=== PATIENT | male | born 1960 | race African-American/Black ===

== ENCOUNTER 2021-11-10 22:06 | Emergency (ER) | payer OTHER ==
[~2021-11-10] VITALS: Ht 175.3 cm; Wt 73.0 kg
[2021-11-10 22:35] LABS: IMMATURE GRANULOCYTES 0.4 % (0.0-5.0); MEAN CELL VOLUME 87.8 fL CALC (80.0-100.0); MEAN CORPUSCULAR HGB 26.9 pG CALC (26.0-32.0); MEAN CORPUSCULAR HGB CONC 30.7 g/dL CAL (32.0-36.0); NEUT# 5.02 thou/uL (1.82-7.42); RED BLOOD COUNT 5.39 mill/uL (4.70-6.10); RED CELL DISTRI WIDTH 13.1 % (11.5-15.5)
[2021-11-10 22:39] LABS: HEMATOCRIT 47.3 % (39.0-50.0); HEMOGLOBIN 14.5 g/dl (14.0-18.0)
[2021-11-10 22:55] LABS: ACT PARTIAL THROMBO TIME 22.8 SECONDS (20.0-32.5)
[2021-11-10 22:57] LABS: PROTHROMBIN TIME 10.8 SECONDS (9.0-12.5)
[2021-11-10 23:01] LABS: ALKALINE PHOSPHATASE 82 u/l (38-126); ANION GAP 20 (6-22 (CALC)); BUN 16 mg/dL (9-20); BUN/CREATININE RATIO 14 (12-20 (CALC)); CARBON DIOXIDE 21 mmol/l (22-30); CHLORIDE 105 mmol/l (95-108); CREATININE 1.1 mg/dL (0.7-1.3); GFR > 60 ML/MIN (>=60 (CALC)); GFR FOR AFR.AMER. > 60 ML/MIN (>=60 (CALC)); LIPASE 97 u/l (23-300); POTASSIUM 4.2 mmol/l (3.5-5.1); SGOT/AST 32 u/l (17-59); SODIUM 141 mmol/l (137-146)
[2021-11-10 23:08] LABS: ALBUMIN 4.2 g/dL (3.2-5.0); BILIRUBIN, TOTAL 0.4 mg/dL (0.0-1.4); TOTAL PROTEIN 7.9 g/dL (6.3-8.2)
[2021-11-10] MEDS ORDERED: KEPPRA500 M2 PO (23:43)
[2021-11-11 00:05] VITALS: BP 122/80
== END 2021-11-11 00:15 | disposition designated cancer center or children's hospital (05) | DRG 101 ==
LOC: ED 22:06
PROC: 0HQ1XZZ Repair Face Skin, External Approach (ICD-10-PCS; principal; 2021-11-10)
DX: G40.909 Epilepsy, unspecified, not intractable, without status epilepticus (principal); S01.111A Laceration without foreign body of right eyelid and periocular area, initial encounter; F79 Unspecified intellectual disabilities; W06.XXXA Fall from bed, initial encounter; Y92.143 Cell of prison as the place of occurrence of the external cause; Z20.822 Contact with and (suspected) exposure to COVID-19
CPT/HCPCS: J1953

== ENCOUNTER 2023-02-21 19:52 | Emergency (ER) | payer OTHER ==
[~2023-02-21] VITALS: Ht 175.3 cm; Wt 77.0 kg
[~2023-02-21 19:52] MED LIST: KEPPRA500 M2 PO
[2023-02-21 20:23] LABS: BASO% 0.1 % (0-3); HEMATOCRIT 44.9 % (39.0-50.0); IMMATURE GRANULOCYTES 0.3 % (0.0-5.0); LYMPH% 8.7 % (15-41); MEAN CELL VOLUME 84.7 fL CALC (80.0-100.0); MEAN CORPUSCULAR HGB 26.4 pG CALC (26.0-32.0); MEAN CORPUSCULAR HGB CONC 31.2 g/dL CAL (32.0-36.0); MONO% 5.3 % (2-13); NEUT# 7.48 thou/uL (1.82-7.42); NEUT% 85.6 % (42-76); RED BLOOD COUNT 5.3 mill/uL (4.70-6.10)
[2023-02-21 20:24] LABS: URINE BILIRUBIN - DIPSTICK NEGATIVE (NEGATIVE); URINE BLOOD DIPSTICK SMALL (NEGATIVE); URINE COLOR YELLOW; URINE GLUCOSE - DIPSTICK 500 mg/dL (NEGATIVE); URINE KETONE NEGATIVE (NEGATIVE); URINE LEUK ESTERASE NEGATIVE (NEGATIVE); URINE PH 5.5 (4.5-8.0); URINE PROTEIN - DIPSTICK 100 mg/dL (NEG-TRACE); URINE SPECIFIC GRAVITY >=1.030; URINE UROBILINOGEN - DIPSTICK 0.2 E.U./dL (0.2)
[2023-02-21 20:27] LABS: URINE NITRITE - DIPSTICK NEGATIVE (Negative)
[2023-02-21] MEDS ORDERED: PROZAC20 MG PO (20:29)
[2023-02-21] MEDS ORDERED: KEPPRA750 M2 PO ×2 (20:29→21:30)
[2023-02-21] MEDS ORDERED: ATORVASTATIN CA10 MG PO (20:29)
[2023-02-21 20:33] LABS: URINE AMORPH SEDIMENT MANY hpf (NONE-FER); URINE WBC 0-2 WBC/hpf (0-5)
[2023-02-21 21:15] LABS: ALBUMIN 4.3 g/dL (3.2-5.0); ALKALINE PHOSPHATASE 64 u/l (38-126); ANION GAP 11 (6-22 (CALC)); BILIRUBIN, TOTAL 0.1 mg/dL (0.2-1.3); BUN 17 mg/dL (8-23); BUN/CREATININE RATIO 16 (12-20 (CALC)); CARBON DIOXIDE 27 mmol/l (22-30); CHLORIDE 107 mmol/l (95-108); CREATININE 1.1 mg/dL (0.7-1.3); ETHYL ALCOHOL 0 mg/dl (0-30); GFR FOR AFR.AMER. > 60 ML/MIN (>=60 (CALC)); GFR OTHER RACES > 60 ML/MIN (>=60 (CALC)); MAGNESIUM 2.4 mg/dL (1.6-2.3); POTASSIUM 3.9 mmol/l (3.5-5.1); SGOT/AST 31 u/l (19-48); SODIUM 141 mmol/l (137-146); TOTAL PROTEIN 7.3 g/dL (6.3-8.2)
[2023-02-21 21:52] VITALS: BP 110/74
== END 2023-02-21 22:13 | disposition designated cancer center or children's hospital (05) | DRG 101 ==
LOC: ED 19:52
PROVIDERS: Family Medicine
DX: G40.409 Other generalized epilepsy and epileptic syndromes, not intractable, without status epilepticus (principal); S00.512A Abrasion of oral cavity, initial encounter; X58.XXXA Exposure to other specified factors, initial encounter
CPT/HCPCS: J1953

== ENCOUNTER 2023-04-15 15:56 | Emergency (ER) | payer OTHER ==
[~2023-04-15] VITALS: Ht 175.3 cm; Wt 81.6 kg
[~2023-04-15 15:56] MED LIST changes: +ATORVASTATIN CA10 MG PO; +KEPPRA750 M2 PO; +PROZAC20 MG PO
[2023-04-15 16:22] LABS: BASO% 0.3 % (0-3); HEMATOCRIT 43.5 % (39.0-50.0); HEMOGLOBIN 13.6 g/dl (14.0-18.0); IMMATURE GRANULOCYTES 0.3 % (0.0-5.0); LYMPH% 38.3 % (15-41); MEAN CELL VOLUME 84.8 fL CALC (80.0-100.0); MEAN CORPUSCULAR HGB 26.5 pG CALC (26.0-32.0); MEAN CORPUSCULAR HGB CONC 31.3 g/dL CAL (32.0-36.0); MONO% 13.1 % (2-13); NEUT# 2.9 thou/uL (1.82-7.42); RED BLOOD COUNT 5.13 mill/uL (4.70-6.10); RED CELL DISTRI WIDTH 13.5 % (11.5-15.5)
[2023-04-15 16:33] LABS: ALBUMIN 4.3 g/dL (3.2-5.0); ALKALINE PHOSPHATASE 67 u/l (38-126); BUN 13 mg/dL (8-23); BUN/CREATININE RATIO 12 (12-20 (CALC)); CHLORIDE 106 mmol/l (95-108); CREATININE 1.1 mg/dL (0.7-1.3); GFR FOR AFR.AMER. > 60 ML/MIN (>=60 (CALC)); GFR OTHER RACES > 60 ML/MIN (>=60 (CALC)); POTASSIUM 3.8 mmol/l (3.5-5.1); SGOT/AST 37 u/l (19-48); SODIUM 139 mmol/l (137-146); TOTAL PROTEIN 7.6 g/dL (6.3-8.2)
[2023-04-15] MEDS ORDERED: LEVETIRACETAM500 MG PO (16:37)
[2023-04-15 16:38] LABS: ANION GAP 18 (6-22 (CALC)); BILIRUBIN, TOTAL 0.5 mg/dL (0.2-1.3); CARBON DIOXIDE 19 mmol/l (22-30)
[2023-04-15 17:28] VITALS: BP 105/67
[2023-04-15 17:30] VITALS: BP 98/63
[2023-04-15 18:00] VITALS: BP 94/61
[2023-04-15 18:30] VITALS: BP 102/66
[2023-04-15 18:44] LABS: URINE BILIRUBIN - DIPSTICK NEGATIVE (NEGATIVE); URINE BLOOD DIPSTICK NEGATIVE (NEGATIVE); URINE COLOR YELLOW; URINE GLUCOSE - DIPSTICK NEGATIVE (NEGATIVE); URINE KETONE NEGATIVE (NEGATIVE); URINE LEUK ESTERASE NEGATIVE (NEGATIVE); URINE NITRITE - DIPSTICK NEGATIVE (Negative); URINE PROTEIN - DIPSTICK 30 mg/dL (NEG-TRACE); URINE SPECIFIC GRAVITY 1.025; URINE UROBILINOGEN - DIPSTICK 0.2 E.U./dL (0.2)
[2023-04-15 18:45] LABS: URINE RBC 0-2 RBC/hpf (0-5)
[2023-04-15 18:55] VITALS: BP 102/66
== END 2023-04-15 19:00 | disposition designated cancer center or children's hospital (05) | DRG 101 ==
LOC: ED 15:56
PROVIDERS: Nurse Practitioner
DX: G40.409 Other generalized epilepsy and epileptic syndromes, not intractable, without status epilepticus (principal); F79 Unspecified intellectual disabilities
CPT/HCPCS: J1953

== ENCOUNTER 2024-04-24 21:31 | Emergency (ER) | payer OTHER ==
[~2024-04-24] VITALS: Ht 175.3 cm; Wt 68.0 kg
[~2024-04-24 21:31] MED LIST changes: +LEVETIRACETAM500 MG PO
[2024-04-24] MEDS ORDERED: SODIUM CHLORIDE 0.9% 1,000 ML IV ONE (21:40)
[2024-04-24 22:27] LABS: BASO% 0.1 % (0-3); HEMATOCRIT 43.9 % (39.0-50.0); HEMOGLOBIN 13.9 g/dl (14.0-18.0); IMMATURE GRANULOCYTES 1.4 % (0.0-5.0); LYMPH% 7.3 % (15-41); MEAN CELL VOLUME 85.7 fL CALC (80.0-100.0); MEAN CORPUSCULAR HGB 27.1 pG CALC (26.0-32.0); MEAN CORPUSCULAR HGB CONC 31.7 g/dL CAL (32.0-36.0); MONO% 10.2 % (2-13); NEUT# 6.52 thou/uL (1.82-7.42); RED BLOOD COUNT 5.12 mill/uL (4.70-6.10); RED CELL DISTRI WIDTH 12.4 % (11.5-15.5)
[2024-04-24 22:52] LABS: ALBUMIN 4.3 g/dL (3.2-5.0); BILIRUBIN, TOTAL 0.3 mg/dL (0.2-1.3); CREATININE 1.4 mg/dL (0.7-1.3); POTASSIUM 4.2 mmol/l (3.5-5.1); TOTAL PROTEIN 7.6 g/dL (6.3-8.2)
[2024-04-24] MEDS ORDERED: PHENYTOIN 25 MG/ML SUSP PO ONE (23:55)
[2024-04-25] MEDS ORDERED: PHENYTOIN SODIUM 250 MG/5 ML VIAL IV ONE (00:10)
[2024-04-25] MEDS ORDERED: SODIUM CHLORIDE 0.9% 250 ML IV ONE (00:13)
[2024-04-25] MEDS ORDERED: MORPHINE SULFATE 4 MG/ML VIAL IV ONE (00:15)
[2024-04-25 04:00] VITALS: BP 67/54
[2024-04-25 04:03] LABS: URINE BILIRUBIN - DIPSTICK Negative (NEGATIVE); URINE BLOOD DIPSTICK Moderate (NEGATIVE); URINE GLUCOSE - DIPSTICK Negative (NEGATIVE); URINE KETONE Negative (NEGATIVE); URINE LEUK ESTERASE Negative (NEGATIVE); URINE NITRITE - DIPSTICK Negative (Negative); URINE PROTEIN - DIPSTICK 100 mg/dL (NEG-TRACE); URINE UROBILINOGEN - DIPSTICK 0.2 E.U./dL (0.2)
[2024-04-25 04:04] LABS: URINE COLOR Yellow
[2024-04-25 04:10] LABS: URINE SQUAMOUS EPITHELIAL CELL FEW EPI/hpf (0-FEW); URINE WBC 0-2 WBC/hpf (0-5)
== END 2024-04-25 04:00 | disposition short-term general hospital (02) | DRG 65 ==
LOC: ED 21:31
PROVIDERS: Family Medicine
DX: I60.9 Nontraumatic subarachnoid hemorrhage, unspecified (principal); G81.94 Hemiplegia, unspecified affecting left nondominant side; R29.810 Facial weakness; R47.1 Dysarthria and anarthria; R29.714 NIHSS score 14; G40.409 Other generalized epilepsy and epileptic syndromes, not intractable, without status epilepticus; F20.9 Schizophrenia, unspecified; F79 Unspecified intellectual disabilities
CPT/HCPCS: Q9967

== ENCOUNTER 2024-09-06 17:40 | Emergency (ER) | payer OTHER ==
[2024-09-06] VITALS (51 sets, daily range): BP systolic 70–149; BP diastolic 45–98
[~2024-09-06] VITALS: Ht 172.7 cm; Wt 63.6 kg
[2024-09-06] MEDS ORDERED: SODIUM CHLORIDE 0.9% 1,000 ML IV ONE ×2 (17:55)
[2024-09-06] MEDS ORDERED: PROPOFOL 100 ML IV ONE (18:20)
[2024-09-06] MEDS ORDERED: KETAMINE HCL 50 MG/ML 10 ML VIAL IM ONE (18:20)
[2024-09-06] MEDS ORDERED: ROCURONIUM BROMIDE 10 MG/ML 5ML VIAL IV ONE (18:20)
[2024-09-06] MEDS ORDERED: PHENYLEPHRINE HCL 10 MG/ML VIAL IV ONE (18:25)
[2024-09-06] MEDS ORDERED: SODIUM CHLORIDE 0.9% 100 ML IV ONE ×3 (18:25→18:43)
[2024-09-06] MEDS ORDERED: NOREPINEPHRINE BITARTRATE 4 MG in DEXTROSE 5% 250 ML IV ONE (18:30)
[2024-09-06] MEDS ORDERED: SODIUM CHLORIDE 0.9% 100 ML BAG IV ONE (18:30)
[2024-09-06] MEDS ORDERED: SODIUM CHLORIDE 0.9% 250 ML IV PRN (18:30)
[2024-09-06] MEDS ORDERED: KETAMINE HCL 50 MG/ML 10 ML VIAL IV ONE (18:45)
--- NOTE | 2024-09-06 19:25 | NUR ---
RECEIVED PATIENT VIA HANDOFF FROM ED RN, PATIENT INTUBATED FIO2 60% PEEP 5 VIA ET 7.5 26 @ THE LIP - VITALS STABLE. PROPOFOL @ 5MCG/KG/MIN, LEVOPHED @ 10 MCG/MIN, 0.9%NS WIDE OPEN PER MD ORDER, 2ND LITER INFUSING VIA PRESSURE BAG . RECEIVED 3G KEPPRA IV, 2G COMPLETED DURING REPORT. PLACED BUCKLEY CATHETER, URINE OBTAINED AND SENT TO LAB FOR UA ORDERED.
[2024-09-06 19:26] LABS: BASO% 0.1 % (0-3); HEMOGLOBIN 13.9 g/dl (14.0-18.0); IMMATURE GRANULOCYTES 0.7 % (0.0-5.0); LYMPH% 7.2 % (15-41); MEAN CELL VOLUME 84.3 fL CALC (80.0-100.0); MEAN CORPUSCULAR HGB 27.3 pG CALC (26.0-32.0); MEAN CORPUSCULAR HGB CONC 32.3 g/dL CAL (32.0-36.0); MONO% 9.9 % (2-13); NEUT# 7.27 thou/uL (1.82-7.42); NEUT% 82.1 % (42-76); RED BLOOD COUNT 5.1 mill/uL (4.70-6.10)
[2024-09-06 19:38] LABS: ALBUMIN 4.4 g/dL (3.2-5.0); BILIRUBIN, TOTAL 0.3 mg/dL (0.2-1.3); CREATININE 1.2 mg/dL (0.7-1.3); POTASSIUM 3.2 mmol/l (3.5-5.1); TOTAL PROTEIN 7.4 g/dL (6.3-8.2)
--- NOTE | 2024-09-06 19:50 | NUR ---
PATIENT ESCORTED TO CT PER MD ORDER WITH RT AND RADIOLOGY. RETURNED AT 2009.
[2024-09-06 20:00] LABS: URINE BILIRUBIN - DIPSTICK Negative (NEGATIVE); URINE BLOOD DIPSTICK Small (NEGATIVE); URINE GLUCOSE - DIPSTICK Negative (NEGATIVE); URINE KETONE Negative (NEGATIVE); URINE LEUK ESTERASE Negative (NEGATIVE); URINE NITRITE - DIPSTICK Negative (Negative); URINE PROTEIN - DIPSTICK 100 mg/dL (NEG-TRACE); URINE SPECIFIC GRAVITY >=1.030; URINE UROBILINOGEN - DIPSTICK 0.2 E.U./dL (0.2)
[2024-09-06 20:01] LABS: URINE COLOR Yellow
[2024-09-06 20:12] LABS: URINE SPERM FEW hpf (NONE-RARE); URINE WBC 0-2 WBC/hpf (0-5)
--- NOTE | 2024-09-06 20:31 | NUR ---
LEVOPHED DRIP REDUCED TO 5MCG/KG/MIN BP HOLDING AT 130S/70-80S.
--- NOTE | 2024-09-06 21:00 | NUR ---
LEVO DRIP REDUCED TO 2 MCG, PRESSURES HOLDING AT 130S/80S
--- NOTE | 2024-09-06 21:19 | NUR ---
2114 LEVO DRIP STOPPED PRESSURES STABLE 130S/90S. MD NOTIFIED AND AWARE. SUCTIONED FOR AIRWAY CLEARANCE, PT BIT TONGUE DURING SEIZURE AND HAS OPEN AREA ON TONGUE.
--- NOTE | 2024-09-06 22:04 | NUR ---
REPORT CALLED TO [facility] [id number], TRACY RECEIVED REPORT. TRANSPORT ARRIVED AND GIVEN BEDSIDE REPORT.
--- NOTE | 2024-09-06 22:24 | NUR ---
EXITED WITH PROPOFOL AT 5 IN ROUTE TO [facility] VIA [facility] AT 2225.
== END 2024-09-06 22:00 | disposition short-term general hospital (02) | DRG 101 ==
LOC: ED 17:40
PROVIDERS: Nurse Practitioner
PROC: 0T9B70Z Drainage of Bladder with Drainage Device, Via Natural or Artificial Opening (ICD-10-PCS; principal; 2024-09-06)
PROC: 0BH17EZ Insertion of Endotracheal Airway into Trachea, Via Natural or Artificial Opening (ICD-10-PCS; 2024-09-06)
PROC: 5A1935Z Respiratory Ventilation, Less than 24 Consecutive Hours (ICD-10-PCS; 2024-09-06)
PROC: 02HV33Z Insertion of Infusion Device into Superior Vena Cava, Percutaneous Approach (ICD-10-PCS; 2024-09-06)
DX: G40.401 Other generalized epilepsy and epileptic syndromes, not intractable, with status epilepticus (principal); F79 Unspecified intellectual disabilities
CPT/HCPCS: J1953

== ENCOUNTER 2024-10-17 20:46 | Emergency (ER) | payer OTHER ==
[~2024-10-17] VITALS: Ht 172.7 cm; Wt 89.0 kg
[2024-10-17 21:28] LABS: BASO% 0.1 % (0-3); ESTIMATED GFR 56 ML/MIN (>=90 (CALC)); HEMATOCRIT 46.5 % (39.0-50.0); HEMOGLOBIN 14.4 g/dl (14.0-18.0); IMMATURE GRANULOCYTES 0.8 % (0.0-5.0); LYMPH% 10.1 % (15-41); MEAN CELL VOLUME 87.6 fL CALC (80.0-100.0); MEAN CORPUSCULAR HGB 27.1 pG CALC (26.0-32.0); MONO% 7.4 % (2-13); NEUT# 6.2 thou/uL (1.82-7.42); NEUT% 81.6 % (42-76); RED BLOOD COUNT 5.31 mill/uL (4.70-6.10); RED CELL DISTRI WIDTH 12.7 % (11.5-15.5)
[2024-10-17 21:46] LABS: ALBUMIN 4.9 g/dL (3.2-5.0); BILIRUBIN, TOTAL 0.4 mg/dL (0.2-1.3); CREATININE 1.3 mg/dL (0.7-1.3); POTASSIUM 3.7 mmol/l (3.5-5.1); PROTHROMBIN TIME 10.7 SECONDS (9.0-12.5)
[2024-10-17 21:47] LABS: CALCULATED LDLCHOLESTEROL 43 mg/dL (62-129 (CALC)); HDL CHOLESTEROL 57 mg/dL (39.0-59.0); TOTAL CHOLESTEROL 114 mg/dl (0-199); TOTAL TRIGLYCERIDES 72 mg/dl (0-149); VLDL CHOLESTROL 14 mg/dl (4-45 (CALC))
[2024-10-17 23:00] VITALS: BP 106/66
[2024-10-17 23:15] VITALS: BP 98/49
[2024-10-17 23:31] VITALS: BP 94/46
[2024-10-17 23:45] VITALS: BP 81/41
[2024-10-17 23:59] VITALS: BP 81/45
[2024-10-18] VITALS: BP 93/56
== END 2024-10-18 01:29 | disposition designated cancer center or children's hospital (05) | DRG 101 ==
LOC: ED 20:46
PROVIDERS: Family Medicine
DX: G40.409 Other generalized epilepsy and epileptic syndromes, not intractable, without status epilepticus (principal); F79 Unspecified intellectual disabilities; T42.6X6A Underdosing of other antiepileptic and sedative-hypnotic drugs, initial encounter; Z91.128 Patient's intentional underdosing of medication regimen for other reason
CPT/HCPCS: J1953; Q9967